=== PATIENT | male | born 1975 | race Caucasian/White ===

== ENCOUNTER 2022-06-11 05:05 | Day surgery (SDC) | payer OTHER ==
[~2022-06-11 05:05] MED LIST: LEVSIN0.125 MG PO; PERCOCET 5/3251 TAB PO; TAMS0.4C PO; ZOFRAN4 MG PO
== END 2022-06-11 11:35 | disposition home or self-care (01) ==
LOC: AMB-ENDOS 05:05
PROVIDERS: ATTEND Surgery
DX: R10.13 Epigastric pain (principal); K21.9 Gastro-esophageal reflux disease without esophagitis; E66.01 Morbid (severe) obesity due to excess calories; K29.70 Gastritis, unspecified, without bleeding